=== PATIENT | female | born 1985 | race Caucasian/White ===

== ENCOUNTER 2018-07-25 16:53 | Emergency (ER) | payer SELFPAY ==
[~2018-07-25] VITALS: Ht 160 cm; Wt 100.0 kg
[2018-07-25 18:11] LABS: URINE APPEARANCE HAZY; URINE BILIRUBIN NEGATIVE (NEGATIVE); URINE BLOOD NEGATIVE (NEGATIVE); URINE COLOR YELLOW; URINE GLUCOSE NEGATIVE (NEGATIVE); URINE KETONE NEGATIVE (NEGATIVE); URINE LEUKOCYTE ESTERASE NEGATIVE (NEGATIVE); URINE MUCUS PRESENT (NOT PRESENT); URINE NITRATE NEGATIVE (NEGATIVE); URINE PROTEIN(semi-quant) TRACE mg/dL (NEGATIVE); URINE UROBILINOGEN NORMAL (NORMAL)
[2018-07-25 18:42] LABS: CLUE CELLS PRESENT (Not Observd)
[2018-07-25] MEDS ORDERED: FLAGYL500 M1 PO (18:50)
[2018-07-25 19:06] VITALS: BP 130/88
== END 2018-07-25 19:07 | disposition home or self-care (01) ==
LOC: ED 16:53 → EDBD 16:53 → ED 17:23
PROVIDERS: Physician Assistant
DX: N76.0 Acute vaginitis (principal); N73.0 Acute parametritis and pelvic cellulitis; F17.210 Nicotine dependence, cigarettes, uncomplicated; N83.209 Unspecified ovarian cyst, unspecified side; Z90.49 Acquired absence of other specified parts of digestive tract; Z98.51 Tubal ligation status
CPT/HCPCS: J0696; Q0111

== ENCOUNTER 2018-11-05 20:16 | Emergency (ER) | payer SELFPAY ==
[~2018-11-05] VITALS: Ht 162.6 cm; Wt 116.3 kg
[~2018-11-05 20:16] MED LIST: FLAGYL500 M1 PO
[2018-11-05] MEDS ORDERED: FIORICET 325 MG1 TAB PO (23:24)
[2018-11-05 23:44] VITALS: BP 113/71
== END 2018-11-05 23:44 | disposition home or self-care (01) ==
LOC: ED 20:16
DX: R51 Headache (principal); F17.210 Nicotine dependence, cigarettes, uncomplicated; Z90.49 Acquired absence of other specified parts of digestive tract; W22.8XXA Striking against or struck by other objects, initial encounter; Y92.69 Other specified industrial and construction area as the place of occurrence of the external cause; Y99.0 Civilian activity done for income or pay
CPT/HCPCS: J1885

== ENCOUNTER 2019-02-05 21:33 | Emergency (ER) | payer SELFPAY ==
[~2019-02-05 21:33] MED LIST changes: +FIORICET 325 MG1 TAB PO
[2019-02-05 23:10] VITALS: BP 123/63
== END 2019-02-05 23:10 | disposition home or self-care (01) ==
LOC: ED 21:33
DX: S93.401A Sprain of unspecified ligament of right ankle, initial encounter (principal); F17.210 Nicotine dependence, cigarettes, uncomplicated; Z90.49 Acquired absence of other specified parts of digestive tract; X50.1XXA Overexertion from prolonged static or awkward postures, initial encounter; Y92.009 Unspecified place in unspecified non-institutional (private) residence as the place of occurrence of the external cause
CPT/HCPCS: L4386

== ENCOUNTER 2019-03-10 12:51 | Emergency (ER) | payer SELFPAY ==
[~2019-03-10] VITALS: Ht 162.6 cm; Wt 118.2 kg
[2019-03-10 13:01] VITALS: BP 107/71
[2019-03-10 13:40] LABS: URINE APPEARANCE CLEAR; URINE BILIRUBIN NEGATIVE (NEGATIVE); URINE BLOOD NEGATIVE (NEGATIVE); URINE COLOR YELLOW; URINE GLUCOSE NEGATIVE (NEGATIVE); URINE KETONE NEGATIVE (NEGATIVE); URINE LEUKOCYTE ESTERASE TRACE (NEGATIVE); URINE NITRATE NEGATIVE (NEGATIVE); URINE PROTEIN(semi-quant) NEGATIVE (NEGATIVE); URINE UROBILINOGEN NORMAL (NORMAL)
[2019-03-10] MEDS ORDERED: CYCLOBENZAPRINE10 M1 PO (14:43)
== END 2019-03-10 14:53 | disposition home or self-care (01) ==
LOC: ED 12:51
PROVIDERS: Nurse Practitioner Family
DX: M62.830 Muscle spasm of back (principal)
CPT/HCPCS: J1885

== ENCOUNTER → 2019-04-07 | Outpatient (CLI) | payer OTHER ==
[2019-03-10 13:01] VITALS: BP 107/71
[~2019-04-07] MED LIST changes: +CYCLOBENZAPRINE10 M1 PO
== END ==
LOC: MAMMO 14:04
DX: R92.2 Inconclusive mammogram (principal)

== ENCOUNTER 2019-05-06 16:06 | Emergency (ER) | payer SELFPAY ==
[~2019-05-06] VITALS: Ht 160 cm; Wt 121.8 kg
[2019-05-06 16:46] LABS: EOS # 0.3 (0.04-0.40); EOS % 2.4 % (1.0-5.0); HEMATOCRIT 40.6 % (37.0-47.0); HEMOGLOBIN 13.7 g/dL (12.5-16.0); LYMPH# 2.4 (1.50-4.00); MEAN CELL VOLUME 86 fl (78-100); MEAN CORPUSCULAR HEMOGLOBIN 29 pg (27-31); MEAN CORPUSCULAR HGB CONC 34 g/dL (33-37); MEAN PLATELET VOLUME 11.4 fl (7.4-10.4); MONO # 0.7 (0.20-0.80); NEU # 8.1 (1.40-6.50); PLATELET COUNT 266 K/mm3 (130-400); RED BLOOD COUNT 4.71 M/mm3 (4.10-5.30); RED CELL DISTRIBUTION WIDTH 14.5 % (11.5-14.5); WHITE BLOOD COUNT 11.6 K/mm3 (4.8-10.8)
[2019-05-06 16:57] LABS: ALBUMIN 4.1 g/dL (3.5-5.0); POTASSIUM 3.5 mmol/L (3.5-5.1)
[2019-05-06 16:58] LABS: CALCIUM 9.2 mg/dL (8.3-10.5)
[2019-05-06 16:59] LABS: TOTAL PROTEIN 7.8 g/dL (6.4-8.3)
[2019-05-06 17:01] LABS: TOTAL BILIRUBIN 0.3 mg/dL (0.2-1.2)
[2019-05-06 18:00] LABS: URINE APPEARANCE CLEAR; URINE BILIRUBIN NEGATIVE (NEGATIVE); URINE COLOR YELLOW; URINE GLUCOSE NEGATIVE (NEGATIVE); URINE KETONE NEGATIVE (NEGATIVE); URINE LEUKOCYTE ESTERASE TRACE (NEGATIVE); URINE MUCUS PRESENT (NOT PRESENT); URINE NITRATE NEGATIVE (NEGATIVE); URINE PROTEIN(semi-quant) TRACE mg/dL (NEGATIVE); URINE UROBILINOGEN NORMAL (NORMAL)
[2019-05-06] MEDS ORDERED: METRONIDAZOLE500 M1 PO (19:29)
[2019-05-06] MEDS ORDERED: GOOD SENSE OMEP20 MG PO (19:29)
[2019-05-06] MEDS ORDERED: MORGIDOX 1X100100 MG PO (19:29)
[2019-05-06 19:50] VITALS: BP 128/73
== END 2019-05-06 19:50 | disposition home or self-care (01) ==
LOC: ED 16:06
PROVIDERS: Nurse Practitioner Primary Care
DX: R10.13 Epigastric pain (principal); F17.210 Nicotine dependence, cigarettes, uncomplicated; Z87.19 Personal history of other diseases of the digestive system; Z90.49 Acquired absence of other specified parts of digestive tract; Z98.890 Other specified postprocedural states; Z79.51 Long term (current) use of inhaled steroids
CPT/HCPCS: J0696

== ENCOUNTER 2019-09-01 06:02 | Emergency (ER) | payer SELFPAY ==
[~2019-09-01] VITALS: Ht 160 cm; Wt 122.7 kg
[~2019-09-01 06:02] MED LIST changes: +GOOD SENSE OMEP20 MG PO; +METRONIDAZOLE500 M1 PO; +MORGIDOX 1X100100 MG PO
[2019-09-01 06:06] VITALS: BP 122/60
== END 2019-09-01 07:18 | disposition home or self-care (01) ==
LOC: ED 06:02
DX: S93.401A Sprain of unspecified ligament of right ankle, initial encounter (principal); M76.61 Achilles tendinitis, right leg; F17.210 Nicotine dependence, cigarettes, uncomplicated; Z98.51 Tubal ligation status; Z90.89 Acquired absence of other organs; X50.1XXA Overexertion from prolonged static or awkward postures, initial encounter; Y92.009 Unspecified place in unspecified non-institutional (private) residence as the place of occurrence of the external cause

== ENCOUNTER 2019-12-06 14:14 | Emergency (ER) | payer SELFPAY ==
[~2019-12-06] VITALS: Ht 160 cm; Wt 122.4 kg
[2019-12-06 15:52] LABS: EOS # 0.3 (0.04-0.40); EOS % 2.1 % (1.0-5.0); HEMATOCRIT 42.8 % (37.0-47.0); HEMOGLOBIN 14.4 g/dL (12.5-16.0); LYMPH# 2.9 (1.50-4.00); MEAN CELL VOLUME 85 fl (78-100); MEAN CORPUSCULAR HEMOGLOBIN 29 pg (27-31); MEAN CORPUSCULAR HGB CONC 34 g/dL (33-37); MEAN PLATELET VOLUME 11.3 fl (7.4-10.4); MONO # 0.8 (0.20-0.80); NEU # 8.1 (1.40-6.50); PLATELET COUNT 285 K/mm3 (130-400); RED BLOOD COUNT 5.03 M/mm3 (4.10-5.30); RED CELL DISTRIBUTION WIDTH 14.4 % (11.5-14.5); WHITE BLOOD COUNT 12.2 K/mm3 (4.8-10.8)
[2019-12-06 15:53] LABS: URINE APPEARANCE CLEAR; URINE COLOR YELLOW
[2019-12-06 15:54] LABS: URINE BILIRUBIN NEGATIVE (NEGATIVE); URINE BLOOD 250 ery/uL (NEGATIVE); URINE GLUCOSE NEGATIVE (NEGATIVE); URINE KETONE NEGATIVE (NEGATIVE); URINE LEUKOCYTE ESTERASE TRACE (NEGATIVE); URINE NITRATE NEGATIVE (NEGATIVE); URINE PROTEIN(semi-quant) TRACE mg/dL (NEGATIVE); URINE UROBILINOGEN NORMAL (NORMAL)
[2019-12-06 16:03] LABS: ALBUMIN 4.2 g/dL (3.5-5.0)
[2019-12-06 16:06] LABS: TOTAL PROTEIN 8.2 g/dL (6.4-8.3)
[2019-12-06 16:07] LABS: TOTAL BILIRUBIN 0.3 mg/dL (0.2-1.2)
[2019-12-06] MEDS ORDERED: PERCOCET 325 MG1 TA2 PO (17:08)
[2019-12-06 17:24] VITALS: BP 124/72
== END 2019-12-06 17:24 | disposition home or self-care (01) ==
LOC: ED 14:14
PROVIDERS: Nurse Practitioner Family
DX: K80.20 Calculus of gallbladder without cholecystitis without obstruction (principal); N13.2 Hydronephrosis with renal and ureteral calculous obstruction; F17.210 Nicotine dependence, cigarettes, uncomplicated
CPT/HCPCS: J1885

== ENCOUNTER 2021-07-19 12:16 | Emergency (ER) | payer SELFPAY ==
[~2021-07-19] VITALS: Ht 160 cm; Wt 122.4 kg
[~2021-07-19 12:16] MED LIST changes: +AMOXIL500 M1 PO; +PERCOCET 325 MG1 TA2 PO
[2021-07-19 13:13] LABS: BASO # 0.05 K/mm3 (0.02-0.10); EOS # 0.33 K/mm3 (0.04-0.40); EOS % 2.4 % (1.0-5.0); HEMOGLOBIN 13.8 g/dL (12.5-16.0); LYMPH# 3.28 K/mm3 (1.50-4.00); MEAN CELL VOLUME 86 fl (78-100); MEAN CORPUSCULAR HEMOGLOBIN 29 pg (27-31); MEAN CORPUSCULAR HGB CONC 34 g/dL (33-37); MEAN PLATELET VOLUME 11.4 fl (7.4-10.4); MONO # 0.76 K/mm3 (0.20-0.80); NEU # 9.29 K/mm3 (1.40-6.50); PLATELET COUNT 282 K/mm3 (130-400); RED BLOOD COUNT 4.77 M/mm3 (4.10-5.30); RED CELL DISTRIBUTION WIDTH 14.4 % (11.5-14.5); WHITE BLOOD COUNT 13.8 K/mm3 (4.8-10.8)
[2021-07-19 13:27] LABS: ALBUMIN 3.9 g/dL (3.5-5.0); POTASSIUM 4.1 mmol/L (3.5-5.1); SODIUM 137 mmol/L (136-145)
[2021-07-19 13:29] LABS: GLUCOSE 92 mg/dL (65-105)
[2021-07-19 13:30] LABS: TOTAL PROTEIN 7.1 g/dL (6.4-8.3)
[2021-07-19 13:31] LABS: CARBON DIOXIDE 24 mmol/L (22-29); TOTAL BILIRUBIN 0.4 mg/dL (0.2-1.2)
[2021-07-19 13:35] LABS: AST-SGOT 17 U/L (5-34)
[2021-07-19 13:36] LABS: ALT/SGPT 25 U/L (0-55)
[2021-07-19 13:38] LABS: D-DIMER 0.32 mg/L FEU (0.15-0.50)
[2021-07-19 14:03] LABS: TROPONIN-I < 0.030 ng/mL (<0.030)
[2021-07-19 14:06] LABS: PH-URINE 7.5 (5.0 - 8.0); URINE APPEARANCE CLEAR; URINE BILIRUBIN NEGATIVE (NEGATIVE); URINE BLOOD NEGATIVE (NEGATIVE); URINE COLOR YELLOW; URINE GLUCOSE NEGATIVE (NEGATIVE); URINE KETONE NEGATIVE (NEGATIVE); URINE LEUKOCYTE ESTERASE TRACE (NEGATIVE); URINE MUCUS PRESENT (NOT PRESENT); URINE NITRATE NEGATIVE (NEGATIVE); URINE PROTEIN(semi-quant) NEGATIVE (NEGATIVE); URINE UROBILINOGEN NORMAL (NORMAL); URINE WBC 0-1 /hpf (0-3)
[2021-07-19 14:56] VITALS: BP 111/60
== END 2021-07-19 14:45 | disposition home or self-care (01) ==
LOC: ED 12:16
PROVIDERS: Nurse Practitioner
DX: J06.9 Acute upper respiratory infection, unspecified (principal); E66.9 Obesity, unspecified; F17.210 Nicotine dependence, cigarettes, uncomplicated; Z68.39 Body mass index [BMI] 39.0-39.9, adult

== ENCOUNTER 2021-12-15 08:32 | Emergency (ER) | payer SELFPAY ==
[~2021-12-15] VITALS: Ht 160 cm; Wt 127.3 kg
[2021-12-15 08:50] VITALS: BP 144/84
[2021-12-15] MEDS ORDERED: AMOXICILLIN 50500 MG PO (09:20)
== END 2021-12-15 09:38 | disposition home or self-care (01) ==
LOC: ED 08:32
DX: K02.9 Dental caries, unspecified (principal); K03.81 Cracked tooth; K05.30 Chronic periodontitis, unspecified; F17.200 Nicotine dependence, unspecified, uncomplicated; Z28.310 Unvaccinated for COVID-19

== ENCOUNTER → 2023-03-09 | Outpatient (CLI) | payer SELFPAY ==
[~2023-03-09] MED LIST changes: +ALBUTEROL SULF6.7 GM IH; +AMOXICILLIN 50500 MG PO; +CEPHALEXIN500 M1 PO; +FLUTICASON0.05 MG/Ac NS; +NORCO 325 MG-51 TA1 PO; +PREDNISONE1 MG PO
== END ==
LOC: RAD 09:32
DX: R05.9 Cough, unspecified (principal)

== ENCOUNTER → 2023-05-25 | Outpatient (CLI) | payer MEDICAID | LOC: LAB 08:44 | DX: J02.9 Acute pharyngitis, unspecified (principal); Z20.822 Contact with and (suspected) exposure to COVID-19 ==

== ENCOUNTER → 2023-06-29 | Outpatient (CLI) | payer MEDICAID | LOC: RAD 12:15 | DX: S91.331A Puncture wound without foreign body, right foot, initial encounter (principal) ==

== ENCOUNTER → 2023-07-21 | Outpatient (CLI) | payer MEDICAID ==
[2023-07-21 17:38] LABS: BASO # 0.03 K/mm3 (0.02-0.10); EOS # 0.32 K/mm3 (0.04-0.40); EOS % 2.1 % (1.0-5.0); HEMATOCRIT 45.3 % (37.0-47.0); HEMOGLOBIN 14.9 g/dL (12.5-16.0); LYMPH# 3.28 K/mm3 (1.50-4.00); MEAN CELL VOLUME 88 fl (78-100); MEAN CORPUSCULAR HEMOGLOBIN 29 pg (27-31); MEAN CORPUSCULAR HGB CONC 33 g/dL (33-37); MEAN PLATELET VOLUME 11.2 fl (7.4-10.4); MONO # 0.93 K/mm3 (0.20-0.80); NEU # 10.41 K/mm3 (1.40-6.50); PLATELET COUNT 288 K/mm3 (130-400); RED BLOOD COUNT 5.14 M/mm3 (4.10-5.30); RED CELL DISTRIBUTION WIDTH 14.7 % (11.5-14.5)
[2023-07-21 17:42] LABS: URINE APPEARANCE CLOUDY (CLEAR); URINE BILIRUBIN 1+ (NEGATIVE); URINE COLOR YELLOW (YELLOW); URINE GLUCOSE NEGATIVE (NEGATIVE); URINE KETONE TRACE (NEGATIVE); URINE NITRATE NEGATIVE (NEGATIVE); URINE PROTEIN(semi-quant) NEGATIVE (NEGATIVE)
[2023-07-21 17:43] LABS: URINE BLOOD 2+ (NEGATIVE); URINE LEUKOCYTE ESTERASE NEGATIVE (NEGATIVE)
[2023-07-21 17:45] LABS: ALBUMIN 4.2 g/dL (3.5-5.0)
[2023-07-21 17:46] LABS: SODIUM 140 mmol/L (136-145)
[2023-07-21 17:47] LABS: CALCIUM 9.6 mg/dL (8.3-10.5)
[2023-07-21 17:48] LABS: GLUCOSE 93 mg/dL (65-105); TOTAL PROTEIN 8.4 g/dL (6.4-8.3)
[2023-07-21 17:49] LABS: URINE MUCUS PRESENT (NOT PRESENT)
[2023-07-21 17:49] LABS: CARBON DIOXIDE 22 mmol/L (22-29)
[2023-07-21 17:50] LABS: TOTAL BILIRUBIN 0.3 mg/dL (0.2-1.2)
[2023-07-21 17:53] LABS: AST-SGOT 13 U/L (5-34)
[2023-07-21 17:54] LABS: ALT/SGPT 21 U/L (0-55)
[2023-07-21 17:55] LABS: LIPASE 24 U/L (8-78)
[2023-07-21 18:01] LABS: TROPONIN-I < 0.030 ng/mL (0.00-0.033)
== END ==
LOC: LAB 17:24
PROVIDERS: Nurse Practitioner Family
DX: R10.9 Unspecified abdominal pain (principal)

== ENCOUNTER → 2023-09-16 | Outpatient (CLI) | payer MEDICAID | LOC: LAB 16:26 | DX: R30.0 Dysuria (principal) ==

== ENCOUNTER 2023-09-30 08:00 | Outpatient (RCR) | payer MEDICAID | END 2023-10-16 | disposition home or self-care (01) | LOC: OT | DX: M25.522 Pain in left elbow (principal); Z98.890 Other specified postprocedural states ==

== ENCOUNTER 2024-02-01 20:46 | Emergency (ER) | payer MEDICAID ==
[~2024-02-01] VITALS: Ht 160 cm; Wt 129.2 kg
[2024-02-01] MEDS ORDERED: BUTALBITAL, ACE1 TA2 PO (21:46)
[2024-02-01] MEDS ORDERED: NS 1,000 ML IV SCH (22:00)
[2024-02-01] MEDS ORDERED: diphenhydrAMINE 25 MG CAP PO ONE (22:00)
[2024-02-01 22:13] LABS: BASO # 0.03 K/mm3 (0.02-0.10); EOS # 0.27 K/mm3 (0.04-0.40); EOS % 1.8 % (1.0-5.0); HEMATOCRIT 41.8 % (37.0-47.0); HEMOGLOBIN 13.9 g/dL (12.5-16.0); LYMPH# 3.38 K/mm3 (1.50-4.00); MEAN CELL VOLUME 88 fl (78-100); MEAN CORPUSCULAR HEMOGLOBIN 29 pg (27-31); MEAN CORPUSCULAR HGB CONC 33 g/dL (33-37); MONO # 0.77 K/mm3 (0.20-0.80); NEU # 10.15 K/mm3 (1.40-6.50); PLATELET COUNT 260 K/mm3 (130-400); RED BLOOD COUNT 4.73 M/mm3 (4.10-5.30); RED CELL DISTRIBUTION WIDTH 14.7 % (11.5-14.5); WHITE BLOOD COUNT 14.7 K/mm3 (4.8-10.8)
[2024-02-01 22:20] LABS: ALBUMIN 3.8 g/dL (3.5-5.0)
[2024-02-01 22:22] LABS: CALCIUM 9.4 mg/dL (8.3-10.5)
[2024-02-01 22:23] LABS: TOTAL PROTEIN 7.3 g/dL (6.4-8.3)
[2024-02-01 22:24] LABS: TOTAL BILIRUBIN 0.3 mg/dL (0.2-1.2)
[2024-02-01] MEDS ORDERED: Ketorolac 30 MG/ML VIAL IV ONE (23:00)
[2024-02-01 23:40] VITALS: BP 92/56
== END 2024-02-01 21:30 | disposition home or self-care (01) ==
LOC: ED 20:46
PROVIDERS: Physician Assistant
DX: R51.9 Headache, unspecified (principal)
CPT/HCPCS: J0780; J1885; J7030

== ENCOUNTER → 2024-02-04 | Outpatient (CLI) | payer MEDICAID ==
[~2024-02-04] MED LIST changes: +BUTALBITAL, ACE1 TA2 PO
[2024-02-04 12:25] LABS: BASO # 0.03 K/mm3 (0.02-0.10); EOS # 0.16 K/mm3 (0.04-0.40); EOS % 1.4 % (1.0-5.0); HEMATOCRIT 42.9 % (37.0-47.0); HEMOGLOBIN 14.3 g/dL (12.5-16.0); LYMPH# 2.58 K/mm3 (1.50-4.00); MEAN CELL VOLUME 89 fl (78-100); MEAN CORPUSCULAR HEMOGLOBIN 30 pg (27-31); MEAN CORPUSCULAR HGB CONC 33 g/dL (33-37); MEAN PLATELET VOLUME 10.7 fl (7.4-10.4); MONO # 0.66 K/mm3 (0.20-0.80); NEU # 8.27 K/mm3 (1.40-6.50); PLATELET COUNT 264 K/mm3 (130-400); RED BLOOD COUNT 4.83 M/mm3 (4.10-5.30); RED CELL DISTRIBUTION WIDTH 14.9 % (11.5-14.5); WHITE BLOOD COUNT 11.8 K/mm3 (4.8-10.8)
== END ==
LOC: LAB 11:59
PROVIDERS: Nurse Practitioner Family
DX: R51.9 Headache, unspecified (principal)

== ENCOUNTER → 2024-03-01 | Outpatient (CLI) | payer MEDICAID ==
[2024-03-01 16:40] LABS: BASO # 0.03 K/mm3 (0.02-0.10); EOS # 0.21 K/mm3 (0.04-0.40); EOS % 1.7 % (1.0-5.0); HEMATOCRIT 46.3 % (37.0-47.0); HEMOGLOBIN 15.4 g/dL (12.5-16.0); LYMPH# 2.73 K/mm3 (1.50-4.00); MEAN CELL VOLUME 89 fl (78-100); MEAN CORPUSCULAR HEMOGLOBIN 30 pg (27-31); MEAN CORPUSCULAR HGB CONC 33 g/dL (33-37); MEAN PLATELET VOLUME 11.3 fl (7.4-10.4); MONO # 0.71 K/mm3 (0.20-0.80); NEU # 8.36 K/mm3 (1.40-6.50); PLATELET COUNT 264 K/mm3 (130-400); RED BLOOD COUNT 5.19 M/mm3 (4.10-5.30); RED CELL DISTRIBUTION WIDTH 14.5 % (11.5-14.5); WHITE BLOOD COUNT 12.1 K/mm3 (4.8-10.8)
[2024-03-01 16:50] LABS: ALBUMIN 4.2 g/dL (3.5-5.0)
[2024-03-01 16:52] LABS: CALCIUM 9.6 mg/dL (8.3-10.5)
[2024-03-01 16:53] LABS: TOTAL PROTEIN 7.8 g/dL (6.4-8.3)
[2024-03-01 16:55] LABS: TOTAL BILIRUBIN 0.4 mg/dL (0.2-1.2)
[2024-03-01 18:23] LABS: URINE APPEARANCE TURBID (CLEAR); URINE COLOR YELLOW (YELLOW)
[2024-03-01 18:24] LABS: URINE BILIRUBIN NEGATIVE (NEGATIVE); URINE BLOOD TRACE-INTACT (NEGATIVE); URINE GLUCOSE NEGATIVE (NEGATIVE); URINE KETONE TRACE (NEGATIVE); URINE LEUKOCYTE ESTERASE TRACE (NEGATIVE); URINE NITRATE NEGATIVE (NEGATIVE); URINE PROTEIN(semi-quant) NEGATIVE (NEGATIVE); URINE WBC 0-1 /hpf (0-3)
== END ==
LOC: LAB 16:22
PROVIDERS: Nurse Practitioner Family
DX: N39.0 Urinary tract infection, site not specified (principal)

== ENCOUNTER → 2024-05-26 | Outpatient (CLI) | payer MEDICAID | LOC: RAD 16:43 | DX: R07.81 Pleurodynia (principal) ==